=== PATIENT | male | born 1985 | race African-American/Black ===

== ENCOUNTER 2018-03-21 11:21 | Emergency (ER) | payer SELFPAY ==
[~2018-03-21] VITALS: Ht 167.6 cm; Wt 57.1 kg
[2018-03-21 11:52] LABS: BASOPHIL (%) 0.2 % (0-1); EOSINOPHIL (%) 0 % (0-5); HEMATOCRIT 34.4 % (38.0-50.0); HEMOGLOBIN 12.3 G/DL (12.5-16.6); IMMATURE GRANULOCYTE (%) 0.1 % (0.0-0.7); LYMPHOCYTE COUNT 1.1 K/uL (1.0-2.8); MCH 31.6 PG (29.0-34.0); MCHC 35.8 G/DL (30.0-36.0); MCV 88.4 FL (86-99); MONOCYTE (%) 2.7 % (3-12); MONOCYTE COUNT 0.3 K/uL (0-0.8); NEUTROPHIL COUNT 8.2 K/uL (1.8-6.4); PLATELET COUNT 177 K/uL (156-360); RBC DIS.WIDTH-CV 11.7 % (11.8-14.6); RBC DIS.WIDTH-SD 37.2 % (39-53); RED BLOOD COUNT 3.89 M/uL (4.00-5.50); WHITE BLOOD COUNT 9.5 K/uL (4.1-10.2)
[2018-03-21 12:05] LABS: ALBUMIN 4.7 g/dL (3.2-4.8)
[2018-03-21 12:06] LABS: CHLORIDE 108 mEq/L (99-109); POTASSIUM 4.1 mEq/L (3.7-5.4); SODIUM 141 mEq/L (136-147)
[2018-03-21 12:08] LABS: GLUCOSE 74 mg/dL (70-99); TOTAL PROTEIN 7.2 g/dL (6.4-8.3)
[2018-03-21 12:10] LABS: TOTAL BILIRUBIN 1.7 mg/dL (0.0-1.0)
[2018-03-21 12:11] LABS: ALKALINE PHOSPHATASE 62 IU/L (3-129)
[2018-03-21 12:12] LABS: CREATININE 0.9 mg/dL (0.6-1.3)
[2018-03-21 12:13] LABS: AST (GOT) 18 IU/L (2-34); UREA NITROGEN (BUN) 9 mg/dL (9-23)
[2018-03-21 12:15] LABS: ALT (GPT) 12 IU/L (3-49); LIPASE 9 U/L (1.0-51.0)
[2018-03-21 12:20] LABS: GFR ESTIMATE (CALCULATED) > 59 mL/min/ (58.99-99999)
[2018-03-21] MEDS ORDERED: ZOFRAN4 MG PO (13:45)
[2018-03-21] MEDS ORDERED: BENTYL20 MG PO (13:45)
[2018-03-21 13:59] VITALS: BP 109/54
== END 2018-03-21 14:00 | disposition home or self-care (01) ==
LOC: EME 11:21
PROVIDERS: Emergency Medicine
DX: R10.9 Unspecified abdominal pain (principal); Z88.6 Allergy status to analgesic agent
CPT/HCPCS: 74177; 80053; 83690; 85025; 99281; 99285; J2405; J3010; J7030

== ENCOUNTER 2018-04-02 02:36 | Emergency (ER) | payer SELFPAY ==
[~2018-04-02] VITALS: Ht 188 cm; Wt 57.4 kg
[~2018-04-02 02:36] MED LIST: BENTYL20 MG PO; ZOFRAN4 MG PO
[2018-04-02 03:03] LABS: BASOPHIL (%) 0.2 % (0-1); EOSINOPHIL (%) 0.4 % (0-5); HEMOGLOBIN 12.1 G/DL (12.5-16.6); IMMATURE GRANULOCYTE (%) 0.6 % (0.0-0.7); LYMPHOCYTE (%) 20.1 % (15-42); LYMPHOCYTE COUNT 1.6 K/uL (1.0-2.8); MCH 31.8 PG (29.0-34.0); MCHC 35.6 G/DL (30.0-36.0); MCV 89.2 FL (86-99); MONOCYTE (%) 3.7 % (3-12); MONOCYTE COUNT 0.3 K/uL (0-0.8); PLATELET COUNT 198 K/uL (156-360); RBC DIS.WIDTH-CV 12.2 % (11.8-14.6); RBC DIS.WIDTH-SD 39.6 % (39-53); RED BLOOD COUNT 3.81 M/uL (4.00-5.50); WHITE BLOOD COUNT 8.1 K/uL (4.1-10.2)
[2018-04-02 03:21] LABS: ALBUMIN 4.8 g/dL (3.2-4.8); CHLORIDE 108 mEq/L (99-109); POTASSIUM 3.8 mEq/L (3.7-5.4); SODIUM 145 mEq/L (136-147)
[2018-04-02 03:23] LABS: GLUCOSE 84 mg/dL (70-99); TOTAL PROTEIN 7.6 g/dL (6.4-8.3)
[2018-04-02 03:25] LABS: TOTAL BILIRUBIN 1.6 mg/dL (0.0-1.0)
[2018-04-02 03:27] LABS: ALKALINE PHOSPHATASE 66 IU/L (3-129); CREATININE 0.8 mg/dL (0.6-1.3); GFR ESTIMATE (CALCULATED) > 59 mL/min/ (58.99-99999)
[2018-04-02 03:28] LABS: AST (GOT) 19 IU/L (2-34); UREA NITROGEN (BUN) 13 mg/dL (9-23)
[2018-04-02 03:30] LABS: ALT (GPT) 13 IU/L (3-49); LIPASE 9 U/L (1.0-51.0)
[2018-04-02 06:45] VITALS: BP 114/64
[2018-04-02] MEDS ORDERED: ZOFRAN ODT4 MG PO (06:46)
[2018-04-02] MEDS ORDERED: COMPAZINE10 MG PO (06:46)
== END 2018-04-02 06:45 | disposition home or self-care (01) ==
LOC: EME → EDBD 02:36 → EME 06:45
PROVIDERS: Emergency Medicine
DX: R11.2 Nausea with vomiting, unspecified (principal); R10.9 Unspecified abdominal pain; Z88.6 Allergy status to analgesic agent
CPT/HCPCS: 74177; 80053; 81003; 83690; 85025; 99281; 99285; J0780; J2405; J2765; J3010; J7030